=== PATIENT | female | born 1960 | race Caucasian/White ===

== ENCOUNTER 2017-06-16 00:40 | Inpatient (IN) | payer MEDICAID ==
[2017-06-16] VITALS (7 sets, daily range): BP systolic 129–158; BP diastolic 73–88; Ht 160 cm; Wt 83.2 kg
[~2017-06-16] VITALS: Ht 160 cm; Wt 83.2 kg
--- NOTE | ~2017-06-16 | OP ---
PATIENT NAME: BRIONNA BLACKWOOD MEDICAL RECORD: [id number] :56 LOCATION:[id number] ADMISSION DATE:06/16/17 SURGEON: NORMA GARCIA, DATE OF OPERATION: 06/16/2017 PROCEDURE PERFORMED: Left ankle open reduction and internal fixation. PREOPERATIVE DIAGNOSIS: Closed left bimalleolar fracture with subluxation. POSTOPERATIVE DIAGNOSIS: Closed left bimalleolar fracture with subluxation. INDICATIONS: Ms. Blackwood is a 56-year-old female who stepped out of a chair yesterday and twisted and heard a pop and crack and broke her ankle. She was taken to the ER and seen to have a fractured ankle. She was admitted and told that if she want to walk, she would have to have it fixed. She was informed of the risks and benefits of procedure. She consented to the procedure, risks including infection, damage to nerve and vessels, and need for further surgery. DESCRIPTION OF PROCEDURE: The patient was given a block by anesthesia in the preoperative area. She was then taken to the operative suite, laid in the supine position, given general anesthetic and a gram of Ancef. Timeout was performed and everyone was in agreement with the correct side, site, and patient. Left lower extremity was then prepped and draped with a tourniquet above the knee under the drapes. After this was done, the left lower extremity was exsanguinated with an Esmarch and tourniquet was inflated. The tourniquet was up for a total of 54 minutes during the case and the tourniquet was inflated. Incision was marked out over the fibula. Careful dissection was made down after incising the skin with 15 blade to the fibula itself. The fracture was reduced and held with clamps and the plate was put into place and held with a K-wire. Once the plate was in adequate position, shaft screw was put into place on the fibula to hold it and then the distal locking screws were put in, 4 of them and 2 more screws were put in the shaft with a locking screw at the most proximal hole. This was an Arthrex plate. Then, the attention was taken to the medial malleolus where I used 2 K-wires to go through the malleolus reducing the fracture and then overdrilled with a cannulated drill and then 2 cannulated screws were put in, 50 mm in length having nice reduction of the medial malleolar fracture. Once this was done, the K-wires were removed and then attention was drawn back to the fibula and we put a TightRope and across to hold the angle together due to the fact it was subluxed and more stability. One additional distal locking screw was put in the fibular plate at that time. The ankle was then stressed and seemed to be in very good position and did not widen and AP mortise and lateral were taken. Hardware seemed to be in good position and the tourniquet was let down at 54 minutes. No major bleeders were noted at that time. The plate was then covered with soft tissue using #1 Vicryl and the skin over the fibula was then closed with 2-0 and 3-0 Vicryl in an inverted interrupted fashion and the medial side was closed where the TightRope came out and over the poke holes were the cannulated screws were placed with 4-0 Monocryl in a horizontal mattress fashion. The skin then was closed with ZipLine over the lateral malleolus. Then, Adaptic, 4 x 4s, ABD were placed over the ankle and Kerlix and Webril was placed as a dressing and then a splint was put into place and molded with 6 inch and 4-inch Virgilio wrap wrapped over. The patient was awakened and taken to recovery in stable condition. Blood loss approximately 50 mL. COMPLICATIONS: None. OPERATIVE REPORT [id number] BRIONNA BLACKWOOD TRANSINT:[id number] Voice Confirmation ID: [id number] DOCUMENT ID: [id number] NORMA GARCIA DO at 1847 CC: [id number] DICTATION DATE: 06/16/17 1141 GRAVITY METER OBSERVER: 06/16/17 1520 ADM IN [facility] [address] [place] [address]
[2017-06-16 01:22] LABS: BASOPHILS 0.6 % (0-2); EOSINOPHILS 3.2 % (0-7); HEMATOCRIT 39.1 % (36.0-48.0); IMMATURE GRANULOCYTES 0.1 % (0-5); LYMPHOCYTES 42.3 % (15-50); MCH 31.9 pg (26.0-34.0); MCHC 33.2 g/dL (31.0-37.0); MCV 96.1 fL (80.0-100.0); MEAN PLATELET VOLUME 8.3 fL (7.4-10.4); NEUTROPHILS 49.8 % (40-80); PLATELET COUNT 359 10x3/uL (130-400); RBC 4.07 10x6/uL (4.00-5.40); RDW 12.2 % (11.5-14.5); WBC 7.8 10x3/uL (4.8-10.8)
[2017-06-16 01:32] LABS: INR 0.91 (0.85-1.17); PROTIME 11.9 SECONDS (11.6-15.0)
[2017-06-16 01:38] LABS: APPEARANCE HAZY (CLEAR); BACTERIA FEW /hpf (NONE SEEN); BILIRUBIN NEGATIVE (NEGATIVE); COLOR YELLOW (YELLOW); EPITHELIAL CELLS RARE /hpf (0-5); GLUCOSE NEGATIVE (NEGATIVE); KETONE NEGATIVE (NEGATIVE); NITRITE NEGATIVE (NEGATIVE); PROTEIN NEGATIVE (NEGATIVE); RED CELLS - URINE 0-5 /hpf (0-5); UROBILINOGEN NORMAL (NORMAL)
[2017-06-16 01:40] LABS: ALBUMIN 3.9 g/dL (3.4-5.0); ALKALINE PHOSPHATASE 114 U/L (46-116); ALT (SGPT) 47 U/L (10-68); BILIRUBIN - TOTAL 0.17 mg/dL (0.2-1.3); CALC OSMOLALITY 280 mosm/kg (275-300); CARBON DIOXIDE 23.1 mmol/L (21.0-32.0); CHLORIDE - SERUM 104 mmol/L (98-107); CREATININE - SERUM 0.7 mg/dL (0.6-1.3); GLUCOSE 99 mg/dL (74-106); MAGNESIUM - SERUM 2.3 mg/dL (1.8-2.4); PROTEIN - SERUM 7.6 g/dL (6.4-8.2); SODIUM 141 mmol/L (136-145); UREA NITROGEN 13 mg/dL (7-18); eGFR NON AFRICAN AMERICAN > 90 mL/min (90-120)
[2017-06-16] MEDS ORDERED: OMEPRAZOLE20 M1 PO (03:29)
[2017-06-16] MEDS ORDERED: SYNTHROID88 MCG PO (03:30)
[2017-06-16] MEDS ORDERED: BUPROPION XL150 MG PO (03:30)
[2017-06-16] MEDS ORDERED: PROAIR HFA8.5 GM INH (03:35)
[2017-06-16] MEDS ORDERED: DYMISTA NASAL (03:40)
[2017-06-16] MEDS ORDERED: ULTRAM50 MG PO (03:42)
[2017-06-17 04:00] VITALS: BP 169/81
[2017-06-17 09:14] VITALS: BP 146/91
[2017-06-17 13:54] VITALS: BP 143/81
[2017-06-17 16:25] VITALS: BP 139/65
[2017-06-17 20:00] VITALS: BP 155/87
[2017-06-18] VITALS: BP 123/72
[2017-06-18 04:00] VITALS: BP 145/47
[2017-06-18] MEDS ORDERED: ELIQUIS2.5 MG PO (07:58)
[2017-06-18] MEDS ORDERED: ATARAX 25 MG TA25 MG PO (07:58)
[2017-06-18] MEDS ORDERED: OXYCODONE HCL5 MG PO (07:59)
[2017-06-18 08:00] VITALS: BP 130/80
[2017-06-18 11:57] VITALS: BP 122/70
== END 2017-06-18 12:34 | disposition home or self-care (01) | DRG 493 ==
LOC: D.ER 00:40 → D.MS 01:34 → OBSVTIME 01:34 → D.MS 06-17 19:12
PROVIDERS: Emergency Medicine; Orthopaedic Surgery
PROC: 0QHH04Z Insertion of Internal Fixation Device into Left Tibia, Open Approach (ICD-10-PCS; 2017-06-16)
PROC: 0QSKXZZ Reposition Left Fibula, External Approach (ICD-10-PCS; 2017-06-16)
PROC: 2W3MX1Z Immobilization of Left Lower Extremity using Splint (ICD-10-PCS; 2017-06-16)
PROC: 0QSK0ZZ Reposition Left Fibula, Open Approach (ICD-10-PCS; principal; 2017-06-16 09:00)
DX: S82.842A Displaced bimalleolar fracture of left lower leg, initial encounter for closed fracture (principal); N39.0 Urinary tract infection, site not specified; W18.30XA Fall on same level, unspecified, initial encounter; Z87.891 Personal history of nicotine dependence

== ENCOUNTER 2017-07-03 14:53 | Emergency (ER) | payer MEDICAID ==
[2017-06-16 02:50] VITALS: BMI 32.4
[~2017-07-03 14:53] MED LIST: ATARAX 25 MG TA25 MG PO; BUPROPION XL150 MG PO; DYMISTA NASAL; ELIQUIS2.5 MG PO; OMEPRAZOLE20 M1 PO; OXYCODONE HCL5 MG PO; PROAIR HFA8.5 GM INH; SYNTHROID88 MCG PO; ULTRAM50 MG PO
[2017-07-03 15:47] LABS: BASOPHILS 1.5 % (0-2); EOSINOPHILS 6.5 % (0-7); HEMATOCRIT 35.2 % (36.0-48.0); HEMOGLOBIN 11.6 g/dL (12-16); LYMPHOCYTES 23.3 % (15-50); MCH 31.5 pg (26.0-34.0); MCV 95.7 fL (80.0-100.0); MEAN PLATELET VOLUME 8.4 fL (7.4-10.4); MONOCYTES 7.8 % (2-11); NEUTROPHILS 60.9 % (40-80); PLATELET COUNT 404 10x3/uL (130-400); RBC 3.68 10x6/uL (4.00-5.40); RDW 11.6 % (11.5-14.5); WBC 6.2 10x3/uL (4.8-10.8)
[2017-07-03 16:15] LABS: ALBUMIN 3.5 g/dL (3.4-5.0); ALKALINE PHOSPHATASE 131 U/L (46-116); ALT (SGPT) 30 U/L (10-68); BILIRUBIN - TOTAL 0.19 mg/dL (0.2-1.3); CALC OSMOLALITY 276 mosm/kg (275-300); CALCIUM 9.1 mg/dL (8.5-10.1); CARBON DIOXIDE 28.3 mmol/L (21.0-32.0); CHLORIDE - SERUM 104 mmol/L (98-107); CREATININE - SERUM 0.7 mg/dL (0.6-1.3); GLUCOSE 90 mg/dL (74-106); POTASSIUM - SERUM 3.7 mmol/L (3.5-5.1); PROTEIN - SERUM 7.1 g/dL (6.4-8.2); SODIUM 139 mmol/L (136-145); UREA NITROGEN 10 mg/dL (7-18); eGFR NON AFRICAN AMERICAN > 90 mL/min (90-120)
[2017-07-03 16:19] LABS: CREATINE KINASE 52 UL (21-215)
[2017-07-03 16:34] LABS: TROPONIN-I < 0.017 ng/mL (0.000-0.060)
== END 2017-07-03 17:26 | disposition home or self-care (01) ==
LOC: D.ER 14:53
PROVIDERS: Family Medicine
DX: R07.89 Other chest pain (principal); E03.9 Hypothyroidism, unspecified